=== PATIENT | male | born 1980 | race Caucasian/White ===

== ENCOUNTER 2025-02-17 20:53 | Emergency (ER) | payer OTHER ==
[~2025-02-17] VITALS: Ht 185.4 cm; Wt 111.4 kg
[2025-02-17 21:12] VITALS: BP 144/74; PULSE 78; RESP 16; TEMP 97.5; O2SAT 100
[2025-02-18] MEDS: KETOROLAC TROMETHAMINE 30 MG/ML VIAL IM ONE (00:13)
[2025-02-18] MEDS: LIDOCAINE 5% TRANSDERMAL PATCH TD ONE (00:14)
== END 2025-02-18 01:06 | disposition home or self-care (01) ==
LOC: EMS 20:55
DX: M24.811 Other specific joint derangements of right shoulder, not elsewhere classified (principal); M25.511 Pain in right shoulder
CPT/HCPCS: 99283; 96372; J1885